=== PATIENT | male | born 1975 ===

== ENCOUNTER 2019-06-26 17:39 | Emergency (ER) | payer SELFPAY ==
[~2019-06-26] VITALS: Ht 185.4 cm; Wt 103.6 kg
[2019-06-26 17:43] VITALS: BP 136/86; TEMP 97.7
[2019-06-26] MEDS ORDERED: PREDNISONE20 MG PO (18:40)
[2019-06-26 18:55] VITALS: PULSE 78
== END 2019-06-26 18:55 | disposition home or self-care (01) ==
LOC: COL.ER 17:39
DX: L25.9 Unspecified contact dermatitis, unspecified cause (principal)
CPT/HCPCS: J7512

== ENCOUNTER → 2019-12-03 | Outpatient (CLI) | payer BC ==
[~2019-12-03] MED LIST: PREDNISONE20 MG PO
== END ==
LOC: COL.RAD 12:40
DX: R10.31 Right lower quadrant pain (principal)
CPT/HCPCS: Q9967